=== PATIENT | male | born 1975 | race Caucasian/White ===

== ENCOUNTER 2016-10-03 03:58 | Emergency (ER) | payer OTHER ==
[~2016-10-03] VITALS: Ht 182.9 cm; Wt 117.9 kg
[~2016-10-03 03:58] MED LIST: AMOX500T PO; HYDR-971 PO; SULF1TAB24 PO
[2016-10-03 04:11] VITALS: BP 144/79
[2016-10-03] MEDS ORDERED: POLY17PO5 PO (04:41)
[2016-10-03] MEDS ORDERED: HYDR25SU18 RC (04:41)
[2016-10-03] MEDS ORDERED: MORP15TA PO (04:41)
--- NOTE | 2016-10-03 04:41 | PHYS DOC ---
Past Medical History Past Medical History: Other Additional Past Medical Histor: HEMORRHOIDS Past Surgical History: Other Additional Past Surgical Histo: right hand ORIF Alcohol Use: Rarely Drug Use: None, Marijuana Adult General Chief Complaint Chief Complaint: HEMORRHOIDS HPI HPI 41-year-old male presenting to the emergency department with pain from a hemorrhoid that is sharp severe nonradiating intermittent. He has had a hemorrhoid for approximately year which is at sometimes more painful than others. He has been having worsening pain over the past few days with small streaks of blood after he wipes. Review of systems is negative for abdominal pain nausea vomiting fevers chills diarrhea. He denies chest pain or shortness of breath. All other review of systems is negative unless otherwise noted in history of present illness. Review of Systems Review of Systems SEE ABOVE. Allergies Allergies Allergies Coded Allergies Type Severity Reaction Last Updated Verified No Known Drug Allergies 06/15/14 No Physical Exam Physical Exam Constitutional: Well developed, well nourished, no acute distress, non-toxic appearance. HENT: Normocephalic, atraumatic, bilateral external ears normal, oropharynx moist, no oral exudates, nose normal. [] Eyes: PERRLA, EOMI, conjunctiva normal, no discharge. Neck: Normal range of motion, no tenderness, supple, no stridor. [] Cardiovascular:Heart rate regular rhythm, no murmur Lungs & Thorax: Bilateral breath sounds clear to auscultation [] Abdomen: Bowel sounds normal, soft, no tenderness, no masses, no pulsatile masses. [] Skin: Warm, dry, no erythema, no rash. Back: No tenderness, no CVA tenderness. [] Extremities: No tenderness, no cyanosis, no clubbing, ROM intact, no edema. [] Neurologic: Alert and oriented X 3, normal motor function, normal sensory function, no focal deficits noted. Psychologic: Affect normal, judgement normal, mood normal. [] Current Patient Data Vital Signs Vital Signs Date Time Temp Pulse Resp B/P Pulse Ox O2 Delivery O2 Flow Rate FiO2 10/03/16 04:11 97.5 78 20 97 Room Air 97.5 EKG EKG [] Radiology/Procedures Radiology/Procedures [] Course & Med Decision Making Course & Med Decision Making Pertinent Labs and Imaging studies reviewed. (See chart for details) [] 41-year-old gentleman presenting the emergency department with pain from hemorrhoid. I recommended sitz baths, stool softener, oral pain medication and topical pain medication to follow-up with our GI specialists in the next week. Sohail Disclaimer Sohail Disclaimer This electronic medical record was generated, in whole or in part, using a voice recognition dictation system. Departure Departure Impression: Primary Impression: Hemorrhoids Disposition: HOME, SELF-CARE Condition: STABLE Referrals: NO PCP (PCP) MESSI CHINCHILLA MD, PRAVIN N MD Additional Instructions: Thank you for allowing us to participate in your care today. Followup with your primary care physician in 3 days if your symptoms do not improve. Follow-up with our GI team within the next 7 days. If you do not have a primary care provider you can ask for a list of our primary care providers. Return to the emergency department you have any new or concerning findings. This should be evaluated by the primary care physician and any necessary consulting services for continued management within a few days after discharge. Return to emergency room if you have any new or concerning symptoms including but not limited to fever, chills, nausea, vomiting, intractable pain, any new rashes, chest pain, shortness of air, uncontrolled bleeding, difficulty breathing, and/or vision loss. You may have been prescribed medication that can change in your level of thinking and ability to operate machinery. These medications include hydrocodone and Ativan. Also, Benadryl has been known to do this as well. Be sure to check with your pharmacist and ask if the medications you've prescribed can affect your level of consciousness. I recommend not operating heavy machinery or driving while on medication such as these. Scripts Morphine Sulfate 15 Mg Tablet1 Tab PO PRN Q6-8HRS PRN SEVERE PAIN #8 TAB Prov:DARRIUS CHRISTINE MD 10/03/16 Hydrocortisone Acetate (Anusol-Hc)25 Mg Supp.rect1 Supp RC PRN BID PRN PAIN #14 SUPP Prov:DARRIUS CHRISTINE MD 10/03/16 Polyethylene Glycol 3350 (Miralax)17 Gm Powd.pack1 Packet PO DAILY #30 PACKET Ref 3 Prov:DARRIUS CHRISTINE MD 10/03/16 DARRIUS CHRISTINE MD Oct 03, 2016 04:41
== END 2016-10-03 04:52 | disposition home or self-care (01) ==
LOC: ER 03:58
DX: K64.9 Unspecified hemorrhoids (principal); F12.10 Cannabis abuse, uncomplicated
CPT/HCPCS: 99283

== ENCOUNTER 2018-03-14 13:21 | Emergency (ER) | payer OTHER ==
[~2018-03-14] VITALS: Ht 182.9 cm; Wt 117.9 kg
[~2018-03-14 13:21] MED LIST changes: +HYDR25SU18 RC; +MORP15TA PO; +POLY17PO29 PO
[2018-03-14] MEDS ORDERED: MORPHINE SULFATE 10 MG/ML VIAL. SQ ONE (13:45)
[2018-03-14] MEDS ORDERED: methylPREDNISolone SOD SUCC PF 125 MG/2 ML VIAL. IM ONE (13:45)
[2018-03-14] MEDS ORDERED: KETOROLAC 60 MG/2 ML INJ. IM ONE (13:45)
[2018-03-14] MEDS ORDERED: HYDROcodone/APAP 5/325MG 1 TAB TABLET PO ONE (13:45)
[2018-03-14] MEDS ORDERED: diazePAM 5 MG TABLET PO ONE (13:45)
--- NOTE | 2018-03-14 13:59 | PHYS DOC ---
Past Medical History Past Medical History: Other Additional Past Medical Histor: HEMORRHOIDS Past Surgical History: Other Additional Past Surgical Histo: right hand ORIF Alcohol Use: Rarely Drug Use: None, Marijuana Adult General Chief Complaint Chief Complaint: LOWER BACK PAIN OR INJURY HPI HPI Patient is a 43 year old male with no significant medical history who presents today complaining of 10 out of 10 bilateral low back pain that began 4 days ago while lifting items helping his friend move. Patient denies the pain radiating to bilateral lower extremities. Denies any loss of bowel bladder function. He states the pain is relieved on laying on his stomach. Review of Systems Review of Systems Constitutional: Denies fever or chills [] GI: Denies abdominal pain, nausea, vomiting, bloody stools or diarrhea [] : Denies dysuria or hematuria [] Musculoskeletal: Low back pain Integument: Denies rash or skin lesions [] Neurologic: Denies headache, focal weakness or sensory changes [] All other systems were reviewed and found to be within normal limits, except as documented in this note. Current Medications Current Medications Current Medications Medications (Trade) Dose Ordered Sig/Nigel Start Time Stop Time Status Last Admin Dose Admin Acetaminophen/ Hydrocodone Bitart (Lortab 5/325) 1 tab 1X ONCE 03/14/18 13:45 03/14/18 13:47 DC 03/14/18 13:53 1 TAB Diazepam (Valium) 5 mg 1X ONCE 03/14/18 13:45 03/14/18 13:47 DC 03/14/18 13:52 5 MG Ketorolac Tromethamine (Toradol Im) 60 mg 1X ONCE 03/14/18 13:45 03/14/18 13:47 DC 03/14/18 13:53 60 MG Methylprednisolone Sodium Succinate (SOLU-Medrol 125MG VIAL) 125 mg 1X ONCE 03/14/18 13:45 03/14/18 13:47 DC 03/14/18 13:54 125 MG Morphine Sulfate (Morphine Sulfate) 10 mg 1X ONCE 03/14/18 13:45 03/14/18 13:47 DC 03/14/18 13:53 10 MG Ondansetron HCl (Zofran Odt) 4 mg 1X ONCE 03/14/18 15:00 03/14/18 15:01 Allergies Allergies Allergies Coded Allergies Type Severity Reaction Last Updated Verified No Known Drug Allergies 06/15/14 No Physical Exam Physical Exam Constitutional: Well developed, well nourished, no acute distress, non-toxic appearance. [] Abdomen: Bowel sounds normal, soft, no tenderness, no masses, no pulsatile masses. [] Skin: Warm, dry, no erythema, no rash. [] Back: Diffuse paraspinal muscle tenderness to bilateral lumbar spine, no midline lumbar spine tenderness, no CVA tenderness. Unable to do straight leg raises, patient is laying on his stomach Extremities: No tenderness, no cyanosis, no clubbing, ROM intact, no edema. [] Neurologic: Alert and oriented X 3, normal motor function, normal sensory function, no focal deficits noted. [] Psychologic: writhing in pain. Current Patient Data Vital Signs Vital Signs Date Time Temp Pulse Resp B/P (MAP) Pulse Ox O2 Delivery O2 Flow Rate FiO2 03/14/18 13:30 97.6 81 20 165/104 (124) 97 Room Air 97.6 EKG EKG [] Radiology/Procedures Radiology/Procedures []PROCEDURE: LUMBAR SPINE 2-3V EXAM: AP, lateral and LS spot views of the lumbar spine DATE: 03/14/2018 1:58 PM INDICATION: lower back pain after lifting heavy object x3 days ago COMPARISON: No Prior FINDINGS: There are 5 nonrib-bearing lumbar-type vertebral bodies. Vertebral body heights are preserved. Vertebral disc heights are preserved. Straightening of the normal lumbar lordosis. No spondylolisthesis. IMPRESSION: 1. Negative acute fracture or subluxation. Electronically signed by: Curtis Leblanc MD (03/14/2018 2:36 PM) [facility] DICTATED and SIGNED BY: CURTIS LEBLANC MD DATE: 03/14/18 1434 Course & Med Decision Making Course & Med Decision Making Pertinent Labs and Imaging studies reviewed. (See chart for details) This is a 43-year-old male patient who presents to the ED complaining of moderate bilateral low back pain that began 4 days ago when lifting items helping a friend move. Patient is writhing in pain. Lumbar spine x-rays interpreted by radiologist are negative for any acute findings. Patient was discharged with Medrol Dosepak, diclofenac, and Valium. Ice elevation encouraged. Follow-up with primary care doctor in 1-2 weeks as needed. Dragon Disclaimer Dragon Disclaimer This electronic medical record was generated, in whole or in part, using a voice recognition dictation system. Departure Departure Impression: Primary Impression: Acute lumbosacral myofascial strain Disposition: 01 HOME, SELF-CARE Condition: STABLE Referrals: NO PCP (PCP) Follow-up with your doctor in 1-2 weeks Patient Instructions: Lumbosacral Strain Additional Instructions: You were evaluated in the emergency room for lumbosacral strain. We wrote you a prescription for pain medications, take them as prescribed. Follow-up with your doctor in 1-2 weeks. Come back to the emergency room at any point symptoms worsen. Scripts Diazepam (VALIUM) 5 Mg Tablet 5 MG PO TID, #15 TAB Prov: NOAM ZAVALA APRN 03/14/18 Ondansetron (ZOFRAN ODT) 4 Mg Tab.rapdis 1 TAB SL Q8HRS, #15 TAB Prov: NOAM ZAVALA APRN 03/14/18 Methylprednisolone (MEDROL) 4 Mg Tab.ds.pk 1 PKG PO UD, #1 PKG Prov: NOAM ZAVALA APRN 03/14/18 Diclofenac Sodium (DICLOFENAC SODIUM) 50 Mg Tablet.dr 1 TAB PO BID, #30 TAB 0 Refills Prov: NOAM ZAVALA APRN 03/14/18 Problem Qualifiers Primary Impression: Acute lumbosacral myofascial strain Encounter type: initial encounter Qualified Codes: S39.012A - Strain of muscle, fascia and tendon of lower back, initial encounter NOAM ZAVALA APRN Mar 14, 2018 13:59
--- NOTE | 2018-03-14 14:39 | RAD ---
EXAM: AP, lateral and LS spot views of the lumbar spine DATE: 03/14/2018 1:58 PM INDICATION: lower back pain after lifting heavy object x3 days ago COMPARISON: No Prior FINDINGS: There are 5 nonrib-bearing lumbar-type vertebral bodies. Vertebral body heights are preserved. Vertebral disc heights are preserved. Straightening of the normal lumbar lordosis. No spondylolisthesis. IMPRESSION: 1. Negative acute fracture or subluxation. Electronically signed by: Curtis Leblanc MD (03/14/2018 2:36 PM) [facility]
[2018-03-14] MEDS ORDERED: ONDA4TAB10 SL (14:54)
[2018-03-14] MEDS ORDERED: METH4TAB2 PO (14:54)
[2018-03-14] MEDS ORDERED: DICL50TA4 PO (14:54)
[2018-03-14] MEDS ORDERED: DIAZ5TAB PO (14:54)
[2018-03-14] MEDS ORDERED: ONDANSETRON ODT 4 MG TAB.RAPDIS. PO ONE (15:00)
[2018-03-14] MEDS ORDERED: DICYCLOMINE 20 MG/2 ML AMPUL. IM ONE (15:15)
[2018-03-14] MEDS ORDERED: diphenhydrAMINE 50 MG/ML VIAL IM ONE (15:15)
[2018-03-14 15:46] VITALS: BP 160/82
== END 2018-03-14 15:47 | disposition home or self-care (01) ==
LOC: ER 13:21
DX: S39.012A Strain of muscle, fascia and tendon of lower back, initial encounter (principal); X50.0XXA Overexertion from strenuous movement or load, initial encounter; Y93.89 Activity, other specified; Y92.89 Other specified places as the place of occurrence of the external cause; Y99.8 Other external cause status
CPT/HCPCS: 72100; 96372; 99284; J0500; J1200; J1885; J2270; J2930; Q0162

== ENCOUNTER 2018-05-05 23:02 | Emergency (ER) | payer OTHER ==
[~2018-05-05] VITALS: Ht 182.9 cm; Wt 127.0 kg
[~2018-05-05 23:02] MED LIST changes: +DIAZ5TAB PO; +DICL50TA4 PO; +METH4TAB2 PO; +ONDA4TAB10 SL
[2018-05-05 23:15] VITALS: BP 157/78
[2018-05-06 00:29] LABS: BASO # 0.1 x10^3/uL (0.0-0.2); BASO % 1 % (0-3); EOS # 0.5 x10^3/uL (0.0-0.7); EOS % 4 % (0-3); HEMATOCRIT 42.5 % (39.0-53.0); HEMOGLOBIN 14.7 g/dL (13.0-17.5); LYMPH # 1.9 x10^3/uL (1.0-4.8); LYMPH % 15 % (24-48); MEAN CORPUSCULAR HEMOGLOBIN 32 pg (25-35); MEAN CORPUSCULAR HGB CONC 35 g/dL (31-37); MEAN CORPUSCULAR VOLUME 92 fL (79-100); MONO % 8 % (0-9); NEUT # 9.6 x10^3uL (1.8-7.7); NEUT % 73 % (31-73); PLATELET COUNT 270 x10^3/uL (140-400); RED BLOOD COUNT 4.61 x10^6/uL (4.30-5.70); RED CELL DISTRIBUTION WIDTH 13.2 % (11.5-14.5); WHITE BLOOD COUNT 13.1 x10^3/uL (4.0-11.0)
[2018-05-06] MEDS ORDERED: IV NORMAL SALINE 1000ML BAG 1,000 ML IV ONE (00:30)
[2018-05-06] MEDS ORDERED: IPRATRPIUM/ALBUTEROL 0.5/2.5MG 3 ML NEBU. NEB ONE (00:30)
[2018-05-06 00:31] LABS: CALCIUM 9.2 mg/dL (8.5-10.1); CREATININE 1.3 mg/dL (0.7-1.3); GFR 59.7
[2018-05-06 00:37] LABS: ALBUMIN 3.4 g/dL (3.4-5.0); ALBUMIN/GLOBULIN RATIO 0.7 (1.0-1.7); TOTAL BILIRUBIN 0.4 mg/dL (0.2-1.0); TOTAL PROTEIN 8.1 g/dL (6.4-8.2)
[2018-05-06] MEDS ORDERED: cefTRIAXone SODIUM 2 GM in IV DEXTROSE 5% 100ML 100 ML IV ONE (01:00)
[2018-05-06] MEDS ORDERED: SULF1TAB24 PO (01:07)
[2018-05-06] MEDS ORDERED: HYDR-971 PO (01:07)
--- NOTE | 2018-05-06 01:09 | PHYS DOC ---
Past Medical History Past Medical History: Other Additional Past Medical Histor: HEMORRHOIDS Past Surgical History: Other Additional Past Surgical Histo: right hand ORIF Alcohol Use: Rarely Drug Use: None, Marijuana Adult General Chief Complaint Chief Complaint: KNEE INJURY HPI HPI Patient is a 43 year old male who presents with an infection over his right knee. The patient states that he was under the crawl space in his house doing work and thinks that he might have been bitten by a spider. He states that it has been turning red over the past few days and that when he squeezes pus comes out. He denies fever, nausea or vomiting. He is also having some wheezing but states that that is common for him. Review of Systems Review of Systems Constitutional: Denies fever or chills [] Eyes: Denies change in visual acuity, redness, or eye pain [] HENT: Denies nasal congestion or sore throat [] Respiratory: See history of present illness Cardiovascular: No additional information not addressed in HPI [] GI: Denies abdominal pain, nausea, vomiting, bloody stools or diarrhea [] : Denies dysuria or hematuria [] Musculoskeletal: Denies back pain or joint pain [] Integument: See history of present illness Neurologic: Denies headache, focal weakness or sensory changes [] Endocrine: Denies polyuria or polydipsia [] All other systems were reviewed and found to be within normal limits, except as documented in this note. Current Medications Current Medications Current Medications Medications (Trade) Dose Ordered Sig/Nigel Start Time Stop Time Status Last Admin Dose Admin Albuterol/ Ipratropium (Duoneb) 3 ml 1X ONCE 05/06/18 00:30 05/06/18 00:31 DC 05/06/18 00:11 3 ML Ceftriaxone Sodium 2 gm/ Dextrose 100 ml @ 200 mls/hr 1X ONCE 05/06/18 01:00 05/06/18 01:29 DC 05/06/18 00:57 200 MLS/HR Sodium Chloride 1,000 ml @ 1,000 mls/hr 1X ONCE 05/06/18 00:30 05/06/18 01:29 DC 05/06/18 00:24 1,000 MLS/HR Allergies Allergies Allergies Coded Allergies Type Severity Reaction Last Updated Verified No Known Drug Allergies 06/15/14 No Physical Exam Physical Exam Constitutional: Well developed, well nourished, no acute distress, non-toxic appearance. [] Cardiovascular:Heart rate regular rhythm, no murmur [] Lungs & Thorax: Bilateral breath sounds have mild inspiratory wheezes throughout Abdomen: Bowel sounds normal, soft, no tenderness, no masses, no pulsatile masses. [] Skin: There is a 5 cm in diameter area of erythema and calor with a small pustule in the center that is indurated with no fluctuance Back: No tenderness, no CVA tenderness. [] Extremities: No tenderness, no cyanosis, no clubbing, ROM intact, no edema. [] Neurologic: Alert and oriented X 3, normal motor function, normal sensory function, no focal deficits noted. [] Psychologic: Affect normal, judgement normal, mood normal. [] Current Patient Data Vital Signs Vital Signs Date Time Temp Pulse Resp B/P (MAP) Pulse Ox O2 Delivery O2 Flow Rate FiO2 05/06/18 00:12 97 Room Air 05/05/18 23:15 98.0 108 20 157/78 (104) 98.0 Lab Values Laboratory Tests Test 05/06/18 00:12 White Blood Count 13.1 x10^3/uL (4.0-11.0) H Red Blood Count 4.61 x10^6/uL (4.30-5.70) Hemoglobin 14.7 g/dL (13.0-17.5) Hematocrit 42.5 % (39.0-53.0) Mean Corpuscular Volume 92 fL (79-100) Mean Corpuscular Hemoglobin 32 pg (25-35) Mean Corpuscular Hemoglobin Concent 35 g/dL (31-37) Red Cell Distribution Width 13.2 % (11.5-14.5) Platelet Count 270 x10^3/uL (140-400) Neutrophils (%) (Auto) 73 % (31-73) Lymphocytes (%) (Auto) 15 % (24-48) L Monocytes (%) (Auto) 8 % (0-9) Eosinophils (%) (Auto) 4 % (0-3) H Basophils (%) (Auto) 1 % (0-3) Neutrophils # (Auto) 9.6 x10^3uL (1.8-7.7) H Lymphocytes # (Auto) 1.9 x10^3/uL (1.0-4.8) Monocytes # (Auto) 1.0 x10^3/uL (0.0-1.1) Eosinophils # (Auto) 0.5 x10^3/uL (0.0-0.7) Basophils # (Auto) 0.1 x10^3/uL (0.0-0.2) Sodium Level 140 mmol/L (136-145) Potassium Level 4.0 mmol/L (3.5-5.1) Chloride Level 104 mmol/L (98-107) Carbon Dioxide Level 25 mmol/L (21-32) Anion Gap 11 (6-14) Blood Urea Nitrogen 14 mg/dL (8-26) Creatinine 1.3 mg/dL (0.7-1.3) Estimated GFR (Cockcroft-Gault) 59.7 BUN/Creatinine Ratio 11 (6-20) Glucose Level 107 mg/dL (70-99) H Lactic Acid Level 0.9 mmol/L (0.4-2.0) Calcium Level 9.2 mg/dL (8.5-10.1) Total Bilirubin 0.4 mg/dL (0.2-1.0) Aspartate Amino Transferase (AST) 15 U/L (15-37) Alanine Aminotransferase (ALT) 23 U/L (16-63) Alkaline Phosphatase 73 U/L (46-116) Total Protein 8.1 g/dL (6.4-8.2) Albumin 3.4 g/dL (3.4-5.0) Albumin/Globulin Ratio 0.7 (1.0-1.7) L Laboratory Tests 05/06/18 00:12 Laboratory Tests 05/06/18 00:12 Microbiology 05/06/18 Blood Culture - Final, Complete NO GROWTH AFTER 5 DAYS EKG EKG [] Radiology/Procedures Radiology/Procedures []PATIENT: DEEPIKA AVELARCOUNT: [id number]#: [id number] : 1975 LOCATION: ER AGE: 43 SEX: M EXAM STATUS: DEP ER ORD. PHYSICIAN: DAISY AZAR APRN REASON: infection PROCEDURE: KNEE RIGHT 3V 3 views right knee 05/06/2018 12:20 AM Indication: REDNESS; INFECTION Comparison: None available Findings: There is no acute fracture or dislocation. Articular surfaces are uninterrupted and smooth. Anterior soft tissue thickening is noted. Definitive joint effusion is not seen. A small radiopacity over is seen projecting over subcutaneous tissues posteriorly and laterally. This could be overlying the patient's skin, represent calcification, or small foreign body. Impression: 1.Anterior soft tissue edema without evidence of acute osseous abnormality. 2. Small radiopacity over is seen within the subcutaneous tissues posteriorly. This could be overlying the patient's skin, represent calcification, or small foreign body. Electronically signed by: Jorje Herzog MD (05/06/2018 8:02 AM) [facility] DICTATED and SIGNED BY: JORJE HERZOG MD DATE: 05/06/18 0757 Course & Med Decision Making Course & Med Decision Making Pertinent Labs and Imaging studies reviewed. (See chart for details) []The patient was given a respiratory treatment in the emergency room with resolution of his wheezing. Staff Physician Addendum: I was working in the ER during the course of this patient's visit. I was available for consultation as needed, but I was not directly involved in the care of this patient. Dragon Disclaimer Dragon Disclaimer This electronic medical record was generated, in whole or in part, using a voice recognition dictation system. Departure Departure Impression: Primary Impression: Cellulitis Disposition: 01 HOME, SELF-CARE Condition: STABLE Referrals: NO PCP (PCP) Patient Instructions: Cellulitis Additional Instructions: Take the medication as prescribed. Do not drive or operate heavy machinery while taking pain medication. Follow-up with your primary care provider for recheck in 3 days or return to the emergency department if worsening. Scripts Hydrocodone/Apap 5-325 (NORCO 5-325 TABLET) 1 Each Tablet 1 TAB PO PRN Q6HRS PRN for PAIN, #10 TAB 0 Refills Prov: DAISY AZAR INVOICE CODER 05/06/18 Sulfamethoxazole/Trimethoprim (BACTRIM DS TABLET) 1 Each Tablet 1 TAB PO BID, #20 TAB Prov: DAISY AZAR INVOICE CODER 05/06/18 DAISY AZAR APRN May 06, 2018 01:09 KEITH LEY MD May 15, 2018 06:25
--- NOTE | 2018-05-06 08:05 | RAD ---
3 views right knee 05/06/2018 12:20 AM Indication: REDNESS; INFECTION Comparison: None available Findings: There is no acute fracture or dislocation. Articular surfaces are uninterrupted and smooth. Anterior soft tissue thickening is noted. Definitive joint effusion is not seen. A small radiopacity over is seen projecting over subcutaneous tissues posteriorly and laterally. This could be overlying the patient's skin, represent calcification, or small foreign body. Impression: 1.Anterior soft tissue edema without evidence of acute osseous abnormality. 2. Small radiopacity over is seen within the subcutaneous tissues posteriorly. This could be overlying the patient's skin, represent calcification, or small foreign body. Electronically signed by: Jorje Connell MD (05/06/2018 8:02 AM) [facility]
== END 2018-05-06 01:47 | disposition home or self-care (01) ==
LOC: ER 23:02
DX: L03.115 Cellulitis of right lower limb (principal); R06.2 Wheezing
CPT/HCPCS: 36415; 73562; 80053; 83605; 85025; 87040; 94640; 96365; 99285; J0696; J7030; J7620

== ENCOUNTER 2020-03-19 23:05 | Emergency (ER) | payer OTHER ==
[~2020-03-19] VITALS: Ht 182.9 cm; Wt 111.4 kg
[~2020-03-19 23:05] MED LIST changes: +HYDR-3164 PO; -HYDR-971 PO
--- NOTE | 2020-03-20 00:15 | PHYS DOC ---
Past Medical History Past Medical History: Other Additional Past Medical Histor: ABCESS Past Surgical History: Other Additional Past Surgical Histo: BROKEN RIGHT HAND AND LEFT ARM SX. Smoking Status: Current Every Day Smoker Alcohol Use: None Drug Use: None Social History Narrative: 2 WEEKS AGO General Adult EDM: Chief Complaint: MULTIPLE COMPLAINTS HPI: HPI: Patient is a 45 year old [f__sex] who presents with [] Review of Systems: Review of Systems: Constitutional: Denies fever or chills. [] Eyes: Denies change in visual acuity. [] HENT: Denies nasal congestion or sore throat. [] Respiratory: Denies cough or shortness of breath. [] Cardiovascular: Denies chest pain or edema. [] GI: Denies abdominal pain, nausea, vomiting, bloody stools or diarrhea. [] : Denies dysuria. [] Musculoskeletal: Denies back pain or joint pain. [] Integument: Denies rash. [] Neurologic: Denies headache, focal weakness or sensory changes. [] Endocrine: Denies polyuria or polydipsia. [] Lymphatic: Denies swollen glands. [] Psychiatric: Denies depression or anxiety. [] Allergies: Allergies: Allergies Coded Allergies Type Severity Reaction Last Updated Verified No Known Drug Allergies 06/15/14 No Physical Exam: PE: Constitutional: Well developed, well nourished, no acute distress, non-toxic appearance. [] HENT: Normocephalic, atraumatic, bilateral external ears normal, oropharynx moist, no oral exudates, nose normal. [] Eyes: PERRLA, EOMI, conjunctiva normal, no discharge. [] Neck: Normal range of motion, no tenderness, supple, no stridor. [] Cardiovascular:Heart rate regular rhythm, no murmur [] Lungs & Thorax: Bilateral breath sounds clear to auscultation [] Abdomen: Bowel sounds normal, soft, no tenderness, no masses, no pulsatile masses. [] Skin: Warm, dry, no erythema, no rash. [] Back: No tenderness, no CVA tenderness. [] Extremities: No tenderness, no cyanosis, no clubbing, ROM intact, no edema. [] Neurologic: Alert and oriented X 3, normal motor function, normal sensory function, no focal deficits noted. [] Psychologic: Affect normal, judgement normal, mood normal. [] Current Patient Data: Vital Signs: Vital Signs Date Time Temp Pulse Resp B/P (MAP) Pulse Ox O2 Delivery O2 Flow Rate FiO2 03/19/20 23:44 98.1 89 22 153/65 (94) 99 Room Air 98.1 EKG: EKG: @0006 NSR at 87bpm, NO ST elevation, QRS 110ms, QT/QTc 354/427ms Radiology/Procedures: Radiology/Procedures: [] Course & Med Decision Making: Course & Med Decision Making Pertinent Labs and Imaging studies reviewed. (See chart for details) [] Dragon Disclaimer: DragBrainMass Disclaimer: This electronic medical record was generated, in whole or in part, using a voice recognition dictation system. Departure Departure Impression: Primary Impression: Hand contusion Qualified Codes: S60.221A - Contusion of right hand, initial encounter Additional Impressions: Chronic cough Cellulitis Qualified Codes: L03.113 - Cellulitis of right upper limb Bee sting Qualified Codes: T63.444A - Toxic effect of venom of bees, undetermined, initial encounter Disposition: HOME, SELF-CARE Condition: STABLE Referrals: NO PCP (PCP) Patient Instructions: Bee, Wasp, or Hornet Sting, Cellulitis, [id number], Cough, Adult, Awnx-wi-Gheg, Hand Contusion, [id number] Additional Instructions: Do not soak your wound. You may shower. Clean wound daily with soap and water. Change dressing 2 times daily. Use over the counter antibiotic ointment with each dressing change. Scripts Mupirocin (MUPIROCIN OINTMENT) 22 Gm Oint...g. 1 GI TP TID for WOUND CARE, #1 TUBE Prov: MESSI RIGGS DO 03/20/20 Cephalexin (KEFLEX) 500 Mg Capsule 500 MG PO QID for 7 Days, #28 CAP Prov: MESSI RIGGS DO 03/20/20 Hydrocodone/Apap 5-325 (NORCO 5-325 TABLET) 1 Each Tablet 0.5-1 TAB PO PRN Q6HRS PRN for PAIN, #10 TAB 0 Refills Prov: MESSI RIGGS DO 03/20/20 MESSI RIGGS DO Mar 20, 2020 00:15
[2020-03-20] MEDS ORDERED: MUPIROCIN 2 % TOPICAL CREAM 30GM TUBE. TP ONE (01:00)
[2020-03-20] MEDS ORDERED: DIPH,PERTUSS(ACELL),TET VAC/PF 0.5 ML SYRINGE. VAX IM ONE (01:00)
[2020-03-20] MEDS ORDERED: CEPHALEXIN 250 MG CAPSULE. PO ONE (01:00)
[2020-03-20] MEDS ORDERED: DEXAMETHASONE 4 MG TABLET PO ONE (01:00)
[2020-03-20] MEDS ORDERED: HYDR-3164 PO (01:11)
[2020-03-20] MEDS ORDERED: CEPH-264 PO (01:11)
[2020-03-20] MEDS ORDERED: MUPI22OI2 TP (01:11)
[2020-03-20 01:30] VITALS: BP 151/73
[2020-03-20] MEDS ORDERED: HYDROcodone/APAP 5/325MG 1 TAB TABLET PO ONE (01:30)
--- NOTE | 2020-03-20 02:09 | RAD ---
EXAM: CHEST 1 VIEW History: Cough COMPARISON: None available. TECHNIQUE: Single portable radiograph of the chest FINDINGS: The cardiac silhouette is unremarkable. The lungs are clear bilaterally. The costophrenic sulci are clear and well demarcated. IMPRESSION: No radiographic evidence of an acute cardiopulmonary process. Electronically signed by: Nish Walker MD (03/20/2020 2:06 AM) [id number]
--- NOTE | 2020-03-20 02:12 | RAD ---
Examination: 3 views of the right hand HISTORY: History of crush injury COMPARISON: None available FINDINGS: The alignment of the metacarpophalangeal joints, interphalangeal joints grossly appears unremarkable. Plate and screw fixation third metacarpal is identified. Impression: No acute osseous findings Electronically signed by: Nish Walker MD (03/20/2020 2:08 AM) [id number]
--- NOTE | 2020-03-20 08:40 | EKG ---
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
== END 2020-03-20 01:37 | disposition home or self-care (01) ==
LOC: ER 23:05
DX: S60.221A Contusion of right hand, initial encounter (principal); L03.113 Cellulitis of right upper limb; R05 Cough; F17.200 Nicotine dependence, unspecified, uncomplicated; Z98.890 Other specified postprocedural states; W57.XXXA Bitten or stung by nonvenomous insect and other nonvenomous arthropods, initial encounter; Y93.89 Activity, other specified; Y92.89 Other specified places as the place of occurrence of the external cause; Y99.8 Other external cause status
CPT/HCPCS: 71045; 73130; 90471; 90715; 93005; 99285

== ENCOUNTER 2020-03-23 15:16 | Emergency (ER) | payer OTHER ==
[~2020-03-23] VITALS: Ht 182.9 cm; Wt 111.0 kg
[~2020-03-23 15:16] MED LIST changes: +CEPH-264 PO; +MUPI22OI2 TP
[2020-03-23 15:38] VITALS: BP 140/87
--- NOTE | 2020-03-23 16:52 | RAD ---
HAND RIGHT 3V History: Reason: INCREASED PAIN / Spl. Instructions: / History: Technique: 3 views right hand. Comparison: March 20, 2020. Findings: Dorsal hand soft tissue swelling. Normal alignment. No fracture. Internal fixation third metacarpal, unchanged. Impression: 1. No acute osseous abnormality. 2. Dorsal hand soft tissue swelling. Electronically signed by: Yusef Curtis DO (03/23/2020 4:49 PM) [facility]
--- NOTE | 2020-03-23 17:03 | PHYS DOC ---
Past Medical History Past Medical History: No Pertinent History Additional Past Medical Histor: ABCRAULITO Past Surgical History: Other Additional Past Surgical Histo: HAND SURGERY Smoking Status: Current Every Day Smoker Alcohol Use: Sober Drug Use: None Social History Narrative: "I USED TO DRINK A LOT AND DO DRUGS BUT I HAVEN'T FOR A YEAR." General Adult EDM: Chief Complaint: HAND PROBLEM HPI: HPI: Patient is a 45 year old male who presents with continued right hand pain after he was seen 3 days prior from an injury. The x-ray 3 days ago showed a contusion. He was given [place]. He states he is out of [place] and he needs more [place]. He does have a history of substance abuse. He states that his right dorsal hand is still swollen and tender. He does have 2+ swelling. He also has these crusted verrucous plaques all over his arms and hands. 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 There is no lymph node enlargement seen or felt. Patient rates his pain a aching 10 out of 10. Review of Systems: Review of Systems: Constitutional: Denies fever or chills. [] Eyes: Denies change in visual acuity. [] HENT: Denies nasal congestion or sore throat. [] Respiratory: Denies cough or shortness of breath. [] Cardiovascular: Denies chest pain. positive for right dorsal hand 1+ edema. [] GI: Denies abdominal pain, nausea, vomiting, bloody stools or diarrhea. [] : Denies dysuria. [] Musculoskeletal: Denies back pain or joint pain. Positive for right dorsal hand pain. [] Integument: Denies rash. Positive for right hand dorsal swelling and pain. Positive for sores all over bilateral arms and hands. [] Neurologic: Denies headache, focal weakness or sensory changes. [] Endocrine: Denies polyuria or polydipsia. [] Lymphatic: Denies swollen glands. [] Psychiatric: Denies depression or anxiety. [] Heart Score: Risk Factors: Risk Factors: DM, Current or recent (<one month) smoker, HTN, HLP, family history of CAD, obesity. Risk Scores: Score 0 - 3: 2.5% MACE over next 6 weeks - Discharge Home Score 4 - 6: 20.3% MACE over next 6 weeks - Admit for Clinical Observation Score 7 - 10: 72.7% MACE over next 6 weeks - Early Invasive Strategies Allergies: Allergies: Allergies Coded Allergies Type Severity Reaction Last Updated Verified No Known Drug Allergies 06/15/14 No Physical Exam: PE: Constitutional: Well developed, well nourished, no acute distress, non-toxic appearance. [] HENT: Normocephalic, atraumatic, bilateral external ears normal, oropharynx moist, no oral exudates, nose normal. [] Eyes: PERRLA, EOMI, conjunctiva normal, no discharge. [] Neck: Normal range of motion, no tenderness, supple, no stridor. [] Cardiovascular:Heart rate regular rhythm, no murmur [] Lungs & Thorax: Bilateral breath sounds clear to auscultation [] Abdomen: Bowel sounds normal, soft, no tenderness, no masses, no pulsatile masses. [] Skin: Warm, dry, no erythema, no rash. Crusted plaques all over bilateral hands and arms. [] Back: No tenderness, no CVA tenderness. [] Extremities: Right dorsal hand tenderness, no cyanosis, no clubbing, ROM intact, right dorsal hand 2+ edema. [] Neurologic: Alert and oriented X 3, normal motor function, normal sensory function, no focal deficits noted. [] Psychologic: Affect normal, judgement normal, mood normal. [] Current Patient Data: Vital Signs: Vital Signs Date Time Temp Pulse Resp B/P (MAP) Pulse Ox O2 Delivery O2 Flow Rate FiO2 03/23/20 15:38 98.7 109 24 140/87 (104) 98 Room Air 98.7 EKG: EKG: [] Radiology/Procedures: Radiology/Procedures: [] Impression: [facility] [address] [place], [place] [id number] IMAGING REPORT Signed PATIENT: DEEPIKA AVELAR ACCOUNT: [id number] : 1975 LOCATION: ER AGE: 45 SEX: M EXAM STATUS: REG ER ORD. 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 Instructions: / History: Technique: 3 views right hand. Comparison: March 20, 2020. Findings: Dorsal hand soft tissue swelling. Normal alignment. No fracture. Internal fixation third metacarpal, unchanged. Impression: 1. No acute osseous abnormality. 2. Dorsal hand soft tissue swelling. Electronically signed by: Yusef Putnam DO (03/23/2020 4:49 PM) [facility] DICTATED and SIGNED BY: YUSEF PUTNAM DO DATE: 03/23/201648 Course & Med Decision Making: Course & Med Decision Making Pertinent Labs and Imaging studies reviewed. (See chart for details) Skin pink warm and dry. See HPI. Radial pulse strong and present. Cap refill less than 2 seconds. Patient is using the hand. X-ray today shows no acute findings. Patient eloped before he could be told of his findings or given Itraconazole medication. Patient was educated he was not can get more narcotics and he needed to follow-up with a primary care provider. [] Sohail Disclaimer: Sohail Disclaimer: This electronic medical record was generated, in whole or in part, using a voice recognition dictation system. Departure Departure Impression: Primary Impression: Pain, hand Qualified Codes: M79.643 - Pain in unspecified hand Disposition: 07 AGAINST MEDICAL ADVICE (ELOPED) Condition: STABLE Referrals: NO PCP (PCP) Justicifation of Admission Dx: Justifications for Admission: Justification of Admission Dx: N/A PREMA TEJEDA APRN Mar 23, 2020 17:03
== END 2020-03-23 17:03 | disposition left against medical advice (07) ==
LOC: ER 15:16
DX: M79.641 Pain in right hand (principal); F17.200 Nicotine dependence, unspecified, uncomplicated
CPT/HCPCS: 73130; 99283

== ENCOUNTER 2021-02-07 14:23 | Emergency (ER) | payer OTHER ==
[2021-02-07 14:33] VITALS: BP 105/78
== END 2021-02-07 17:27 | disposition left against medical advice (07) ==
LOC: ER 14:23
DX: K08.89 Other specified disorders of teeth and supporting structures (principal); Z53.21 Procedure and treatment not carried out due to patient leaving prior to being seen by health care provider